=== PATIENT | male | born 1940 | race Caucasian/White ===

== ENCOUNTER → 2023-02-12 | Outpatient (CLI) | payer MEDICARE, OTHER, SELFPAY ==
[2023-02-12 11:51] LABS: PSA,Total- Diagnostic 7.74 ng/mL (0.0-4.0)
[2023-02-13 12:09] LABS: PSA, Free 1.45 ng/mL; PSA, Free % 21.3 % (.)
== END | disposition home or self-care (01) ==
LOC: LAB 10:41
PROVIDERS: Referring Provider Nurse Practitioner; Visit Provider Nurse Practitioner
DX: R97.20 Elevated prostate specific antigen [PSA] (principal)
CPT/HCPCS: 36415; 84153; 84154

== ENCOUNTER → 2023-08-03 | Outpatient (CLI) | payer MEDICARE, OTHER, SELFPAY ==
[2023-08-05 12:10] LABS: PSA, Free % 17.5 % (.)
== END | disposition home or self-care (01) ==
LOC: LAB 14:05
PROVIDERS: Referring Provider Nurse Practitioner; Visit Provider Nurse Practitioner
DX: R97.20 Elevated prostate specific antigen [PSA] (principal)
CPT/HCPCS: 36415; 84153; 84154

== ENCOUNTER → 2024-02-09 | Outpatient (CLI) | payer MEDICARE, OTHER, SELFPAY ==
[2024-02-10 13:08] LABS: PSA, Free 1.02 ng/mL; PSA, Free % 25.3 % (.)
== END | disposition home or self-care (01) ==
LOC: LAB 11:23
PROVIDERS: Referring Provider Nurse Practitioner; Visit Provider Nurse Practitioner
DX: R97.20 Elevated prostate specific antigen [PSA] (principal)
CPT/HCPCS: 36415; 84153; 84154

== ENCOUNTER 2024-04-24 02:12 | Emergency (ER) | payer MEDICARE, OTHER, SELFPAY ==
[2024-04-24] VITALS (7 sets, daily range): BP systolic 121–157; BP diastolic 50–89; PULSE 71–82; RESP 15–71; TEMP 36.7–36.9; O2SAT 70–95; BMI 26.8
--- NOTE | 2024-04-24 02:27 | EKG12_ITS ---
Test Reason : SOB Blood Pressure : */* mmHG Vent. Rate : 77 BPM Atrial Rate : 77 BPM P-R Int : 126 ms QRS Dur : 144 ms QT Int : 412 ms P-R-T Axes : 19 -35 8 degrees QTcB Int : 466 ms Atrial-sensed ventricular-paced rhythm Abnormal ECG Confirmed by Loki Reddy ([id number]), acquisitions editor NOLA ALICEA ([id number]) on 04/26/2024 10:27:23 AM Referred By: Confirmed By: Loki Reddy
[2024-04-24] MEDS: Albuterol 2.5 MG/3 ML VIAL.NEB. INHALATION (02:41)
[2024-04-24 02:46] LABS: Absolute Lymphocyte Count 0.91 X10^3/uL (0.83-4.51); Absolute Neutrophil Count 7.2 X10^3/uL (2.0-7.7); Basophil# 0.03 X10^3/uL; Basophil% 0.3 % (0-1); Eosinophil# 0.12 X10^3/uL; Eosinophils% 1.3 % (0-5); Hemoglobin 13.3 g/dL (13.0-16.5); Lymphocyte # 0.91 X10^3/ul (0.83-4.51); Lymphocyte % 10.2 % (19-41); Mean Corp Hgb Conc 32.4 g/dL (32-36); Mean Corpuscular Hgb 30.7 pg (27.0-32.0); Mean Corpuscular Volume 94.7 fL (80-94); Mean Platelet Vol. 10.1 fl (6.2-12.0); Monocyte# 0.62 X10^3/uL; Monocyte% 6.9 % (0-10); NRBC Flagged by Analyzer 0 % (0-5); Neutrophil # 7.22 X10^3/uL (2.7-7.7); Platelet Count 124 K/mm3 (150-450); RBC Distribution Width SD 48.5 fl (35.1-43.9); Red Blood Count 4.33 M/mm3 (4.6-6.2); White Blood Count 8.9 K/mm3 (4.4-11.0)
--- NOTE | 2024-04-24 02:54 | RAD_ITS ---
EXAM: XR CHEST, 2 VIEWS CLINICAL INDICATION: Shortness of breath TECHNIQUE: Frontal and lateral views of the chest. COMPARISON: No relevant prior studies available. FINDINGS: LUNGS AND PLEURAL SPACES: Unremarkable. No consolidation or edema. No pneumothorax. No effusion. HEART: Unremarkable. Cardiac silhouette not enlarged. MEDIASTINUM: Central airways and mediastinal contour are unremarkable. BONES/JOINTS: Reverse right shoulder arthroplasty. No acute fracture. SOFT TISSUES: Unremarkable. VASCULATURE: Atherosclerotic calcification of the nonenlarged thoracic aortic arch. TUBES, LINES AND DEVICES: AICD/pacer with intact wires/leads. UPPER ABDOMEN: Prior cholecystectomy. RAD/Chest PA and Lateral IMPRESSION: No acute disease. Electronically Signed: Keenan Lindsey MD at 3:58 EST ,
--- NOTE | 2024-04-24 03:21 | EX.ED.DYSGE1 ---
HPI History of Present Illness Chief Complaint: Shortness of Breath Detail of Chief Complaint: Upper respiratory symptoms that started past 24 to 36 hours Informant: patient and spouse/S.O. Onset/Context/Timing Onset: Yesterday Context: Sudden Onset Timing: Continuous Quality: Productive cough, shortness of breath Location: Respiratory Current Severity: Moderate Maximum Severity: Moderate Worsened by: Nothing Relieved by: Nothing Associated Symptoms Associated Symptoms: No fever or chills. No ill contacts. Narrative Narrative: Patient presents with upper respiratory symptoms. He is complaining of shortness of breath and cough. Cough is productive of white sputum. He is a non-smoker. He denies any ill contacts. He denies fever or chills. He denies headache. He does report nasal congestion. He denies sore throat. He denies chest discomfort. He denies GI symptoms. He denies history of asthma as a child. Prior similar symptoms: No Recent Illness/Hospitalization: No PFSH PFSH Medical History Colon cancer Home Medications ?Medication ?Instructions ?Recorded ?Last Taken ?Type aspirin 81 mg chewable tablet 1 tab PO DAILY 04/24/24 Unknown History atorvastatin 80 mg tablet 80 mg PO QHS 04/24/24 Unknown History isosorbide mononitrate 60 mg 60 mg PO DAILY 04/24/24 Unknown History tablet,extended release 24 hr losartan 50 mg tablet 50 mg PO DAILY 04/24/24 Unknown History metoprolol succinate 50 mg 50 mg PO DAILY 04/24/24 Unknown History tablet,extended release 24 hr spironolactone 25 mg tablet 12.5 mg PO DAILY 04/24/24 Unknown History ticagrelor 90 mg tablet (Brilinta) 90 mg PO BID 04/24/24 Unknown History Allergy/AdvReac Type Severity Reaction Status Date / Time No Known Allergies Allergy Verified 04/24/24 02:13 Surgical History Status post left knee replacement H/O shoulder replacement History of coronary artery stent placement Social History Smoking Status: Never smoker ROS ROS ED Constitutional Constitutional ED: Denies chills, fever(s) or subjective Eyes Eyes: Denies blurry vision or change in vision ENT ENT ED: Reports rhinorrhea; Denies ear pain or sore throat Cardiovascular Cardiovascular: Denies chest pain, orthopnea, palpitations or paroxysmal nocturnal dyspnea Respiratory/Chest Respiratory/Chest: Reports cough, dyspnea and sputum; Denies dyspnea on exertion, orthopnea or paroxysmal nocturnal dyspnea Gastrointestinal Gastrointestinal: Denies abdominal pain, nausea or vomiting Genitourinary Genitourinary ED: Denies dysuria, hematuria or urinary frequency Musculoskeletal Musculoskeletal: Denies arthralgias or myalgias Integumentary Denies rash Neurologic Neurologic: Denies headache(s) or weakness Psychiatric Psychiatric: Denies anxiety or depression Endocrine Endocrinology: Denies cold intolerance or heat intolerance Hematologic/Lymphatic Hematologic/Lymphatic: Reports systems reviewed and no addt'l complaints, except as documented EXAM Physical Exam Const Vital Signs: 04/24/24 02:13 04/24/24 02:17 04/24/24 02:38 Temperature 98.5 F 98.5 F Temperature Source Oral Oral Pulse Rate 73 78 78 Respiratory Rate 71 H 21 H 21 H Respiratory Effort Respiratory Depth Respiratory Pattern Blood Pressure 157/89 H 157/80 H Blood Pressure Mean 111 105 Pulse Ox 94 94 Oxygen Delivery Method Room Air Room Air 04/24/24 02:46 04/24/24 03:17 04/24/24 04:00 Temperature 98.2 F 98.2 F Temperature Source Oral Oral Pulse Rate 72 82 Respiratory Rate 15 18 Respiratory Effort Normal Respiratory Depth Normal Respiratory Pattern Normal Blood Pressure 121/72 H 123/50 H Blood Pressure Mean 88 74 Pulse Ox 95 95 Oxygen Delivery Method Room Air Room Air Room Air First respiratory rate was documented be 71. This was incorrect. Positive well nourished and well developed Constitutional Narrative: Patient reports he is having trouble with his breathing. He is tachypneic; he is not hypoxic. General Appearance ED: well developed; Negative for cyanotic, diaphoretic or pallor HEENT Reports moist mucous membranes HEENT Narrative: Head is atraumatic normocephalic. Ears normal. Nares patent with discharge. Eyes PERRL and EOMs intact bilaterally General Eye ED: Negative for pale conjunctiva or scleral icterus Neck no lymphadenopathy and supple Chest Wall inspection of chest normal and palpation of chest normal Resp normal respiratory effort and No clear to auscultation bilaterally Resp Narrative: Patient has expiratory wheezing. He is coughing significantly. He is producing white-colored sputum. Cardio regular rate, regular rhythm, S1 normal heart sound, S2 normal heart sound and no murmurs GI normal to inspection, nondistended, normoactive bowel sounds, non-tender, non-distended and no masses; Negative for hepatosplenomegaly Back/Spine no CVA tenderness Extremity normal to inspection General Extremety ED: Negative for edema or tenderness General Extremity: Negative for edema Neuro oriented x3 and CN's II-XII intact bilaterally Sensorium / Orientation: alert Psych mental status grossly normal Skin no rashes or lesions noted, no wounds and skin turgor normal General Skin Exam: Negative for jaundice or pallor MDM MDM MDM Narrative Medical decision making narrative: Patient was treated the albuterol for his wheezing. Chest x-ray was obtained since he had pneumonia in the past he is concerned he has pneumonia. I suspect this is a viral upper respiratory infection. Because of his age EKG was obtained per protocol. Appropriate blood work was obtained which included CBC to assess white count differential and rule out anemia. BMP to assess for any endorgan dysfunction. Lab Data Attestation: I reviewed the patient's lab results. Lab results narrative: CBC is unremarkable. Electrolyte panel is unremarkable. Chloride slightly elevated 115. Creatinine is 1.20 with estimated GFR 62. Glucose slight elevated 116 with normal CO2 anion gap. Labs: Laboratory Results - last 24 hr 04/24/24 02:36 WBC 8.9 RBC 4.33 L Hgb 13.3 Hct 41.0 MCV 94.7 H MCH 30.7 MCHC 32.4 RDW Std Deviation 48.5 H RDW Coeff of Ana 14.0 Plt Count 124 L MPV 10.1 Immature Gran % (Auto) 0.300 Neut % (Auto) 81.0 H Lymph % (Auto) 10.2 L [place] % (Auto) 6.9 Eos % (Auto) 1.3 Baso % (Auto) 0.3 Absolute Neuts (auto) 7.2 Absolute Lymphs (auto) 0.91 Nucleated RBC % 0 Sodium 141 Potassium 4.3 Chloride 115 H Carbon Dioxide 19.0 L Anion Gap 7 BUN 21 H Creatinine 1.20 Estim Creat Clear Calc 45.92 Est GFR (MDRD) Af Amer 75 Est GFR (MDRD) Non-Af 62 BUN/Creatinine Ratio 17.5 Glucose 116 H Calcium 8.5 Radiography Chest X-Ray - ED: 2 View, Read by ED Physician (Independent reviewed interpreted by me at 0322. There is no acute findings. There is a pacemaker noted. Wires appear to be in proper position.), Unchanged, Heart, Lungs, Mediastinum, Bony Structures and No Acute Disease Diagnostic Testing: Clinical Impression(s) from Imaging Studies Chest X-Ray 04/24/24 02:54 IMPRESSION: No acute disease. Electronically Signed: Keenan Lindsey MD at 3:58 EST , EKG Initial EKG: Attestation: I personally reviewed and interpreted this EKG as follows: Interpretation: Paced (Atrial sensed ventricular paced rhythm with a rate of 77. MO interval is 126 ms. QRS duration 144 ms. QT duration 412 ms.) Treatment and Re-Evaluation :: Patient was reassessed. He is wheeze free. He does report improvement with regards to the coughing and shortness of breath after the albuterol treatment. Since he is never used inhaler we will have respiratory teach him how to use inhaler and dispensed the inhaler. He was informed that this is a viral illness. Antibiotics are not indicated. He was informed of his laboratory results and x-ray results. Discharge Plan Triage Chief Complaint: Shortness of Breath ED Provider: Victorino Hauser Dx/Rx/DC Orders Clinical Impression: Acute bronchitis, Acute bronchospasm, Elevated blood pressure reading with diagnosis of hypertension Prescriptions: No Action losartan 50 mg tablet 50 mg PO DAILY atorvastatin 80 mg tablet 80 mg PO QHS metoprolol succinate 50 mg tablet extended release 24 hr 50 mg PO DAILY spironolactone 25 mg tablet 12.5 mg PO DAILY isosorbide mononitrate 60 mg tablet extended release 24 hr 60 mg PO DAILY aspirin 81 mg tablet,chewable 1 tab PO DAILY Brilinta 90 mg tablet 90 mg PO BID Primary Care Provider: LAW TREVINO Referrals: NOT,DEFINED [Non-Staff] - Doctor,Your [Non-Staff] - 1 Week if not improving Activity Restrictions/Additional Instructions: 1. 2 puffs an inhaler every 2-4 hours while awake for the next 3 to 5 days and every 4-6 hours as needed 2. You may be ill for another 7 to 10 days Print Language: Luxembour[place] Disposition Disposition: Home, Self Care
[2024-04-24 03:28] LABS: BUN 21 mg/dL (7-18); BUN/Creat Ratio 17.5 RATIO (10-20); Calcium,Total 8.5 mg/dL (8.5-10.1); Chloride 115 mmol/L (98-107); Estimated Creatinine Clearance 45.92 ml/min; Glucose 116 mg/dL (74-106); Potassium 4.3 mmol/L (3.5-5.1); Sodium Level 141 mmol/L (136-145)
[2024-04-24] MEDS: Ondansetron ODT 4 MG Tablet PO (04:54)
[2024-04-24] MEDS: Albuterol Sulfate 8 gm Inhaler (60 puffs) 4 PUFF INHALATION (04:57)
[2024-04-24 06:09] LABS: Anion Gap 8 (5-15); EST Glomerular Filtration Rate 62 mL/min (>60); Est Glom Filt Rate - Afr Amer 74 mL/min (>60)
== END 2024-04-24 05:32 | disposition home or self-care (01) ==
PROVIDERS: Emergency Provider Emergency Medicine; Visit Provider Emergency Medicine
DX: J20.9 Acute bronchitis, unspecified (principal); R03.0 Elevated blood-pressure reading, without diagnosis of hypertension; Z95.5 Presence of coronary angioplasty implant and graft; Z85.038 Personal history of other malignant neoplasm of large intestine; Z79.82 Long term (current) use of aspirin; Z96.652 Presence of left artificial knee joint; Z96.619 Presence of unspecified artificial shoulder joint; Z79.899 Other long term (current) drug therapy
CPT/HCPCS: 71046; 80048; 85025; 87631; 93005; 94640; 99284; A4216

== ENCOUNTER → 2025-02-27 | Outpatient (CLI) | payer MEDICARE, OTHER, SELFPAY ==
--- OUTSIDE RECORDS SUMMARY | 2025-02-16 09:47 | XMS RPT_ITS ---
Author Name Auto Generated Organization OHIP Support Name Relationship Address Phone HOLA GERBER Next of Kin [address] [place] [address] + AMBER GERBER Next of Kin Unknown Unavailabl e DIEGO HOLA Next of Kin [address] [place] [address] + DIEGO HOLA Next of Kin [address] [address] [place] [address] + DIEGO HOLA Next of Kin [address] [place] [address] + DIEGO HOLA Next of Kin [address] [address] [place] [address] + DIEGO HOLA Next of Kin [address] [address] [place] [address] + RE Next of Kin Unknown Unavailable DIEGO HOLA Next of Kin [address] [place] [address] + DIEGO HOLA Next of Kin [address] [address] [place] [address] + RE Next of Kin Unknown Unavailable DIEGO HOLA Next of Kin [address] [place] [address] + AMBER GERBER Next of Kin Unknown Unavailabl e DIEGO, HOLA Next of Kin [address] [place] [address] + DIEGO, AMBER Next of Kin Unknown Unavailabl e DIEGO, HOLA Next of Kin [address] [place] [address] + DIEGO, AMBER Next of Kin Unknown Unavailabl e DIEGO, HOLA Next of Kin [address] [place] [address] + DIEGO, AMBER Next of Kin Unknown Unavailabl e DIEGO, HOLA Next of Kin [address] [place] [address] + DIEGO, AMBER Next of Kin Unknown Unavailabl e DIEGO, HOLA Next of Kin Unknown + DIEGO, HOLA Next of Kin Unknown + DIEGO, HOLA Next of Kin Unknown + DIEGO, HOLA Next of Kin Unknown + DIEGO, HOLA Next of Kin Unknown + DIEGO, HOLA Next of Kin Unknown + DIEGO, HOLA Next of Kin Unknown + DIEGO, HOLA Next of Kin Unknown + DIEGO, HOLA Next of Kin Unknown + DIEGO, HOLA Next of Kin [address] [place] [address] + DIEGO, AMBER Next of Kin Unknown Unavailabl e Care Team Providers Care Grinding Wheel Operator Name Role Phone Law Schmitt Referring Unavailable Law Schmitt Primary Care Unavailable Chen Perea Attending Unavailable Uriel, Law Referring Unavailable Uriel, Law Primary Care Unavailable Uriel, Law Attending Unavailable Uriel, Law Attending Unavailable Uriel, Law Primary Care Unavailable Uriel, Law Attending Unavailable Uriel, Law Referring Unavailable Uriel, Law Primary Care Unavailable Uriel, Law Attending Unavailable Uriel, Law Primary Care Unavailable Uriel, Law Referring Unavailable Uriel, Law Primary Care Unavailable Uriel, Law Attending Unavailable Uriel, Law Primary Care Unavailable Uriel, Law Attending Unavailable Uriel, Law Attending Unavailable Uriel, Law Primary Care Unavailable Martha Henderson Attending Unavailable Uriel, Law Referring Unavailable Uriel, Law Primary Care Unavailable Leroy Castillo Jr Attending Unavailable Uriel, Law Primary Care Unavailable Chen Perea Attending Unavailable Uriel, Law Primary Care Unavailable CLASS, [facility] Attending Myrna vailable DOCTOR, [facility] Referring Unav ailable URIEL, LAW Primary Care Unavailable CLASS, [facility] Attending Myrna vailable DOCTOR, [facility] Referring Unav ailable URIEL, LAW Primary Care Unavailable CLASS, [facility] Attending Myrna vailable DOCTOR, [facility] Referring Unav ailable URIEL, LAW Primary Care Unavailable CLASS, [facility] Attending Myrna vailable DOCTOR, [facility] Referring Unav ailable URIEL, LAW Primary Care Unavailable CLASS, [facility] Attending Myrna vailable DOCTOR, [facility] Referring Unav ailable URIEL, LAW Primary Care Unavailable CLASS, [facility] Attending Myrna vailable DOCTOR, [facility] Referring Unav ailable URIEL, LAW Primary Care Unavailable CLASS, [facility] Attending Myrna vailable DOCTOR, [facility] Referring Unav ailable URIEL, LAW Primary Care Unavailable CLASS, [facility] Attending Myrna vailable DOCTOR, [facility] Referring Unav ailable URIEL, LAW Primary Care Unavailable CLASS, [facility] Attending Myrna vailable DOCTOR, [facility] Referring Unav ailable URIEL, LAW Primary Care Unavailable EDGMON, JAMISON Attending Unavailable URIEL, [facility] Primary Care UnavailJANET Tovar Attending Unavailable JANET CHOWDHURY Admitting Unavailable URIEL, LAW SANDI Primary Care Unavailabl e GURVINDER SOTO Attending Unavailable URIEL, LAW Referring Unavailable URIEL, LAW Primary Care Unavailable DEBI SPICER Attending Unavailable DANNIELLE, DEBI Referring Unavailable URIEL, LAW Primary Care Unavailable CINDY TAMAYO Attending Unavailable URIEL, LAW Referring Unavailable URIEL, LAW Primary Care Unavailable SANDY TOLEDO Attending Unavailable URIEL, LAW Primary Care Unavailable RASHAUN BLACKWOOD Attending Unavailable URIEL, LAW Primary Care Unavailable SANDY TOLEDO Attending Unavailable URIEL, LAW Referring Unavailable URIEL, LAW Primary Care Unavailable MANUEL PEREZ Attending Unavailable URIEL, LAW Referring Unavailable URIEL, LAW Primary Care Unavailable URIEL, [facility] Primary Care UnavailJANET Tovar Attending Unavailable JANA PANDA Attending Unavailabl e URIEL, [facility] Primary Care Unavailabl e Chen Jackson Attending Unavail able ERICKSON GRACE Primary Care Unavaila ble Chen Jackson Attending Unavail able ERICKSON GRACE Primary Care Unavaila ble PROBLEMS DATE TYPE CONDITION / CODE ATTENDING STATUS [facility] 01/26/2019 Active Lentigines / L81.4(ICD-10) JANA PANDA [facility] 01/26/2019 Active Seborrheic kerat oses / L82.1(ICD-10) JANA PANDA [facility] 01/26/2019 Active Folliculitis / L73.9(ICD-10) JANA PANDA [facility] 01/26/2019 Active Vitiligo / L80(ICD-10) JANA PANDA [facility] 02/16/2025 Active Atopic dermatiti s, unspecified type / L20.9(ICD-10) JANA PANDA [facility] 01/19/2025 Unknown Follow-up / [id number]() CINDY TAMAYO [facility] 12/28/2024 Admitting diagnosis Family history of malignant neoplasm of digestive organs / Z80.0(ICD-10) SARAP, JANET [facility] 12/28/2024 Admitting diagnosis Colon consult / UNK(Unknown) JANET CHOWDHURY [facility] 12/25/2024 Admitting diagnosis Other muscle spasm / M62.838(ICD-10) [facility] Admitting diagnosis Other injury of unspecified body region, initial encounter / T14.8XXA(ICD-10) EDLYRIC [facility] 12/25/2024 Admitting diagnosis Low back pain, unspecified / M54.50(ICD-10) EDLYRIC [facility] 12/25/2024 Admitting diagnosis Strain of unspecified muscle, fascia and tendon at shoulder and upper arm level, left arm, initial encounter / S46.912A(ICD-10) [facility] 11/05/2023 Unknown Ischemic cardiomyopathy / I25.5(ICD-10) BRITTANY GURVINDER [facility] 06/20/2024 Unknown Sick sinus syndr ome / I49.5(ICD-10) BRITTANY [facility] 06/20/2024 Unknown Presence of card iac pacemaker / Z95.0(ICD-10) BRITTANY GURVINDER [facility] 06/20/2024 Unknown Other supraventr icular tachycardia / I47.19(ICD-10) GURVINDER SOTO [facility] 06/14/2024 Unknown Thoracic aortic ectasia / I77.810(ICD-10) DANNIELLE [facility] 06/14/2024 Unknown Other heart fail ure / I50.89(ICD-10) DANNIELLE [facility] 04/06/[address] elevation (STEMI) myocardial infarction of unspecified site ([facility]) / I21.3(ICD-10) CLASS, [facility] Active [facility] PROCEDURES No Procedure Records Found RESULTS PROGRESS Observed: 02/16/2025 2:24 PM Status: COMPLETED Source: [facility] HNO ID: [id number] Author: JANA PANDA MD Service: ? Author Type: Physician Type: Progress Notes Filed: 02/16/2025 14:29 Note Text: HISTORY: Lissa Gerber is an 84 year old White male without a personal history of skin cancer but with vitiligo who presents today for a full skin exam. Concerned with spots on back that itch and with spots on the forearms that get red, puffy and very itchy at times. He is using desonide cream for treatment without much improvement. He denies any other growing or changing lesions, lesions which have been bleeding or itching, or any other lesions of concern today. Patient is engaging in sun protective measures. Patient is performing self-skin examinations. ALLERGIES No Known Allergies Current Outpatient Medications Medication Sig losartan (COZAAR) 50 mg tablet Take 50 mg by mouth once daily. metoprolol succinate ER (TOPROL XL) 50 mg 24 hr tablet Take 1 tablet by mouth once daily. atorvastatin (LIPITOR) 80 mg tablet Take 80 mg by mouth daily at bedtime. aspirin, enteric coated (ASPIRIN, ENTERIC COATED) 81 mg EC tablet Take 1 tablet by mouth every afternoon. cholecalciferol (VITAMIN D3) 50 mcg (2,000 unit) tablet Take 2,000 Units by mouth once daily. FA/mv,Ca,iron,min/lycopene/lut (MULTIVITAL ORAL) Take by mouth. triamcinolone acetonide (KENALOG) 0.1 % cream Apply 1 application to affected area two times a day. clindamycin (CLEOCIN T) 1 % external solution Apply to affected area two times a day. To scalp and neck prn No current facility-administered medications for this visit. PAST MEDICAL HISTORY Diagnosis Date Colon cancer (HCC) Heart attack (HCC) 10/01/2023 Hypertension Kidney stones Pacemaker 03/2024 PAST PERSONAL SKIN PROBLEMS:vitiligo FAMILY HISTORY Family history unknown: Yes Social History Tobacco Use Smoking status: Never Smokeless tobacco: Never Vaping Use Vaping status: Never Used Substance Use Topics Alcohol use: No Drug use: Never REVIEW OF SYSTEMS: Patient feels well and denies any recent fevers, chills, or nightsweats. EXAM: There were no vitals taken for this visit. General appearance: Well appearing, alert, in no acute distress, well-hydrated, well nourished. Skin: Total body skin examination performed. All areas examined including: scalp, face, conjunctiva/eyelids, lips/mouth, neck, chest, abdomen, back, left upper extremity, right upper extremity, digits/nails, left lower extremity, right lower extremity. -nixon, waxy, stuck on papules of trunk and extremities -many nixon macules with normal pigmentation of face, trunk and extremities -depigmented patches of trunk and extremities -pink patches of b/l forearms and pink pustules of scalp and posterior neck ASSESSMENT/PLAN: 1. Seborrheic keratoses - ICD9: 702.19, ICD10: L82.1 (primary diagnosis) -trunk and extremities -benign, patient reassured 2. Folliculitis - ICD9: 704.8, ICD10: L73.9 -flaring at this time on the scalp and posterior neck -start: - CLINDAMYCIN PHOSPHATE 1 % TOPICAL SOLUTION -recommend wiping off sweat after activities and continuing to wash hair nightly 3. Lentigines - ICD9: 709.09, ICD10: L81.4 -face, trunk and extremities -benign, patient reassured -recommend use of noncomedogenic daily facial moisturizer with SPF 30 4. Vitiligo - ICD9: 709.01, ICD10: L80 -Rx sent for refills of TAC 0.1% cream topically BID prn lesions on the legs -recommend photoprotection with SPF 30 or higher sunscreen, wide brimmed hat, and sun protective UPF clothing when outdoors. 5. Atopic dermatitis, unspecified type - ICD9: 691.8, ICD10: L20.9 - Begin treatment with topical steriods TAC 0.1% cream - Anti itch therapy of zyrtec 10mg recommended prn - Dry skin care instructions reviewed - Use mild soap like Dove, Aveeno or Cetaphil - limit shower/bath to less than 15 minutes with warm, not hot, water - BID use of recommended emollients such as Cetaphil, Eucerin Plus, Aveeno, Aquaphor - Follow up if symptoms persist or worsen. Jana Panda MD Importance of sun-protective measures and self-skin exams reviewed with patient. Recommend photoprotection with SPF 30 or higher sunscreen, wide brimmed hat, and sun protective UPF clothing when outdoors. Return in about 1 year (around 02/16/2026). Some elements copied from my notes 02/16/24, including the physical exam, history, and assessment and plan completed in entirety today, have been updated where appropriate. All reflect current medical decision making from today, 02/16/25. CNOV Observed: 02/16/2025 10:30 AM Status: COMPLETED Source: [facility] Office Visit ([facility]) LISSA GERBER ([id number]) 1940 M Date Time Provider Department 02/16/25 10:30 AM JANA PANDA [facility] During your visit today, we recorded the following information about you: Jana Panda MD 02/16/2025 10:43 AM Addendum -recommend use of OTC cetirizine 10 mg once a day to help with red bumps/itching. Clindamycin solution for scalp/neck and the Triamcinolone cream for the arms. Jana Panda MD 02/16/2025 2:29 PM Signed HISTORY: Lissa Gerber is an 84 year old White male without a personal history of skin cancer but with vitiligo who presents today for a full skin exam. Concerned with spots on back that itch and with spots on the forearms that get red, puffy and very itchy at times. He is using desonide cream for treatment without much improvement. He denies any other growing or changing lesions, lesions which have been bleeding or itching, or any other lesions of concern today. Patient is engaging in sun protective measures. Patient is performing self-skin examinations. ALLERGIES No Known Allergies Current Outpatient Medications Medication Sig losartan (COZAAR) 50 mg tablet Take 50 mg by mouth once daily. metoprolol succinate ER (TOPROL XL) 50 mg 24 hr tablet Take 1 tablet by mouth once daily. atorvastatin (LIPITOR) 80 mg tablet Take 80 mg by mouth daily at bedtime. aspirin, enteric coated (ASPIRIN, ENTERIC COATED) 81 mg EC tablet Take 1 tablet by mouth every afternoon. cholecalciferol (VITAMIN D3) 50 mcg (2,000 unit) tablet Take 2,000 Units by mouth once daily. FA/mv,Ca,iron,min/lycopene/lut (MULTIVITAL ORAL) Take by mouth. triamcinolone acetonide (KENALOG) 0.1 % cream Apply 1 application to affected area two times a day. clindamycin (CLEOCIN T) 1 % external solution Apply to affected area two times a day. To scalp and neck prn No current facility-administered medications for this visit. PAST MEDICAL HISTORY Diagnosis Date Colon cancer (HCC) Heart attack (HCC) 10/01/2023 Hypertension Kidney stones Pacemaker 03/2024 PAST PERSONAL SKIN PROBLEMS:vitiligo FAMILY HISTORY Family history unknown: Yes Social History Tobacco Use Smoking status: Never Smokeless tobacco: Never Vaping Use Vaping status: Never Used Substance Use Topics Alcohol use: No Drug use: Never REVIEW OF SYSTEMS: Patient feels well and denies any recent fevers, chills, or nightsweats. EXAM: There were no vitals taken for this visit. General appearance: Well appearing, alert, in no acute distress, well-hydrated, well nourished. Skin: Total body skin examination performed. All areas examined including: scalp, face, conjunctiva/eyelids, lips/mouth, neck, chest, abdomen, back, left upper extremity, right upper extremity, digits/nails, left lower extremity, right lower extremity. -nixon, waxy, stuck on papules of trunk and extremities -many nixon macules with normal pigmentation of face, trunk and extremities -depigmented patches of trunk and extremities -pink patches of b/l forearms and pink pustules of scalp and posterior neck ASSESSMENT/PLAN: 1. Seborrheic keratoses - ICD9: 702.19, ICD10: L82.1 (primary diagnosis) -trunk and extremities -benign, patient reassured 2. Folliculitis - ICD9: 704.8, ICD10: L73.9 -flaring at this time on the scalp and posterior neck -start: - CLINDAMYCIN PHOSPHATE 1 % TOPICAL SOLUTION -recommend wiping off sweat after activities and continuing to wash hair nightly 3. Lentigines - ICD9: 709.09, ICD10: L81.4 -face, trunk and extremities -benign, patient reassured -recommend use of noncomedogenic daily facial moisturizer with SPF 30 4. Vitiligo - ICD9: 709.01, ICD10: L80 -Rx sent for refills of TAC 0.1% cream topically BID prn lesions on the legs -recommend photoprotection with SPF 30 or higher sunscreen, wide brimmed hat, and sun protective UPF clothing when outdoors. 5. Atopic dermatitis, unspecified type - ICD9: 691.8, ICD10: L20.9 - Begin treatment with topical steriods TAC 0.1% cream - Anti itch therapy of zyrtec 10mg recommended prn - Dry skin care instructions reviewed - Use mild soap like Dove, Aveeno or Cetaphil - limit shower/bath to less than 15 minutes with warm, not hot, water - BID use of recommended emollients such as Cetaphil, Eucerin Plus, Aveeno, Aquaphor - Follow up if symptoms persist or worsen. Jana Panda MD Importance of sun-protective measures and self-skin exams reviewed with patient. Recommend photoprotection with SPF 30 or higher sunscreen, wide brimmed hat, and sun protective UPF clothing when outdoors. Return in about 1 year (around 02/16/2026). Some elements copied from my notes 02/16/24, including the physical exam, history, and assessment and plan completed in entirety today, have been updated where appropriate. All reflect current medical decision making from today, 02/16/25. Allergies As of Date: 02/16/2025 (No Known Allergies) Date Reviewed: 02/16/2025 Reviewed by: Jana Panda MD - Fully Assessed Reason for Visit: Full Body Skin Check [1445] Cmt: Itchy red spot on right forearm Primary Visit Diagnosis:Folliculitis [L73.9] Other Visit Diagnoses:Seborrheic keratoses [L82.1] Lentigines [L81.4] Vitiligo [L80] Atopic dermatitis, unspecified type [L20.9] Order(s):triamcinolone acetonide (KENALOG) 0.1 % creamApply 1 application to affected area two times a day.Disp: 80 gRfl: 5 clindamycin (CLEOCIN T) 1 % external solutionApply to affected area two times a day. To scalp and neck prnDisp: 60 mLRfl: 5 Prescriptions as of 02/16/2025 - losartan (COZAAR) 50 mg tablet Take 50 mg by mouth once daily. - triamcinolone acetonide (KENALOG) 0.1 % cream Apply 1 application to affected area two times a day. - clindamycin (CLEOCIN T) 1 % external solution Apply to affected area two times a day. To scalp and neck prn - metoprolol succinate ER (TOPROL XL) 50 mg 24 hr tablet Take 1 tablet by mouth once daily. - atorvastatin (LIPITOR) 80 mg tablet Take 80 mg by mouth daily at bedtime. - aspirin, enteric coated (ASPIRIN, ENTERIC COATED) 81 mg EC tablet Take 1 tablet by mouth every afternoon. - cholecalciferol (VITAMIN D3) 50 mcg (2,000 unit) tablet Take 2,000 Units by mouth once daily. - FA/mv,Ca,iron,min/lycopene/lut (MULTIVITAL ORAL) Take by mouth. 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 Clindamycin solution for scalp/neck and the Triamcinolone cream for the arms. Prescriptions ordered this encounter Disp Refills Start End TRIAMCINOLONE ACETONIDE 0.1 % TOPICA* 80 g 5 02/16/2025 Route: TOP Sig: Apply 1 application to affected area two times a day. CLINDAMYCIN PHOSPHATE 1 % TOPICAL SO* 60 mL 5 02/16/2025 Route: TOP Sig: Apply to affected area two times a day. To scalp and neck prn Medications Discontinued During This Encounter Prescriptions - BRILINTA 90 mg tablet (Discontinued) Take 90 mg by mouth two times a day. - spironolactone (ALDACTONE) 25 mg tablet (Discontinued) Take 12.5 mg by mouth once daily. - isosorbide mononitrate ER (IMDUR) 60 mg 24 hr tablet (Discontinued) Take 60 mg by mouth once daily. - hydrALAZINE (APRESOLINE) 50 mg tablet (Discontinued) Take 1 tablet by mouth q 8 HR. - clindamycin (CLEOCIN T) 1 % external solution (Discontinued) Apply to affected area two times a day. To scalp and neck prn - triamcinolone acetonide (KENALOG) 0.1 % cream (Discontinued) Apply 1 application to affected area two times a day. Disposition: Return in about 1 year (around 02/16/2026). Follow-up and Disposition History for Encounter Date Provider Department Center 02/16/2025 [id number] Status:Closed by JANA PANDA on 02/16/25 PROGRESS Observed: 12/28/2024 4:43 PM Status: COMPLETED Source: [facility] [id number] [facility] [id number] History and Physical Patient ID: Lissa Gerber 1940 Chief Complaint Colon consult HPI: Lissa is a 84 y.o. male who is a patient of Dr. Brandy Schmitt. He has multiple family members with colon cancer. He has had polyps in the past. He has no current symptoms.. Past Medical History: Diagnosis Date Cancer (HCC) COLON History of heart artery stent X1 Kidney stones Myocardial infarction (HCC) Pacemaker Past Surgical History: Procedure Laterality Date CATARACT EXTRACTION, BILATERAL CHOLECYSTECTOMY COLON RESECTION HERNIA REPAIR ROTATOR CUFF REPAIR TOTAL KNEE ARTHROPLASTY Left TOTAL SHOULDER ARTHROPLASTY Right History reviewed. No pertinent family history. Social History[1] Allergies[2] Current Medications[3] ROS:10 systems reviewed. All deemed to be negative except HPI. PHYSICAL EXAM: VITALS: Blood pressure 134/85, pulse 72, height 5' 8", weight 82 kg (180 lb 12.8 oz), SpO2 97%. GENERAL: Alert and oriented x 3, no acute distress. HEENT: Head atraumatic, normocephalic, sclerae are anicteric, moist mucous membrane, trachea midline. HEART: Regular rate rhythm. LUNG: Normal respiratory effort, clear to auscultation bilaterally. ABDOMEN: Soft, nontender, nondistended, no guarding rebound or rigidity, no hepatosplenomegaly or hernias noted. NEURO: Cranial nerves II to XII grossly intact, no gross motor or sensory neurodeficits noted. EXTREMITIES: Moves all extremities, no edema. SKIN: Warm and dry. ASSESSMENT/PLAN: Diagnoses and all orders for this visit: Family history of colon cancer I discussed the risk benefits complications and alternatives of screening colonoscopy. He understands and gives consent. Will plan for January 17 at 1030. Janet Chowdhury MD [1] Social History Tobacco Use Smoking status: Never Smokeless tobacco: Never Substance Use Topics Alcohol use: Never Drug use: Never [2] Allergies Allergen Reactions Adhesive Tape-Silicones Other (See Comments) Latex Other (See Comments) Adhesive Other (See Comments) [3] Current Outpatient Medications: atorvastatin (LIPITOR) 80 MG tablet, Take 1 (one) tablet (80 mg total) by mouth nightly ., Disp: , Rfl: diazePAM (VALIUM) 5 MG tablet, Take 1 (one) tablet (5 mg total) by mouth 3 (three) times a day as needed for muscle spasms ., Disp: 9 tablet, Rfl: 0 ibuprofen (ADVIL,MOTRIN) 600 MG tablet, Take 1 (one) tablet (600 mg total) by mouth every 6 (six) hours as needed for pain ., Disp: 30 tablet, Rfl: 0 losartan (COZAAR) 50 MG tablet, Take 1 (one) tablet (50 mg total) by mouth daily ., Disp: , Rfl: metoprolol succinate (TOPROL-XL) 50 MG 24 hr tablet, Take 1 (one) tablet (50 mg total) by mouth daily ., Disp: , Rfl: spironolactone (ALDACTONE) 25 MG tablet, Take 0.5 (one-half) tablet (12.5 mg total) by mouth daily ., Disp: , Rfl: ciprofloxacin HCl (CIPRO) 500 MG tablet, Take 1 (one) tablet (500 mg total) by mouth daily for 3 days . (Patient not taking: Reported on 12/28/2024 .), Disp: 3 tablet, Rfl: 0 AUTHENTICATED BY JANET CHOWDHURY, ON 12/28/2024 16:44:12 URINE AEROBIC CULTURE Observed: 12/26/19 8:27 PM Status: F Source: [facility] URINE CULTURE KLEBSIELLA OXYTOCA 10,000-49,000 CFU/mL Klebsiella oxytoca MORGANELLA MORGANII SSP MORGANII 10,000-49,000 CFU/mL Morganella morganii ssp morganii Organism: KLEBSIELLA OXYTOCA Antibiotic Interpretation ROSSANA Status Cefazolin Susc Islt R >=32 F Cefuroxime Oral Susc Islt S 4 F Ceftriaxone Susc Islt S <=0.25 F Cefepime Susc Islt S <=0.12 F Ampicillin+Sulbac Susc Islt R >=32 F Pip+Tazo Susc Islt S <=4 F Aztreonam Susc Islt S <=1 F B-Lactamase Extended Susc Islt S Negative F Gentamicin Susc Islt R >=16 F Tobramycin Susc Islt S 4 F Amikacin Susc Islt S <=1 F Ciprofloxacin Susc Islt S <=0.06 F AVOID fluoroquinolone treatment whenever possible. Risk of serious side effects may outweigh benefit. Levofloxacin Susc Islt S <=0.12 F TMP SMX Susc Islt R >=320 F Nitrofurantoin Susc Islt S 32 F Organism: MORGANELLA MORGANII SSP MORGANII Antibiotic Interpretation ROSSANA Status Pip+Tazo Susc Islt S <=4 F Meropenem Susc Islt S <=0.25 F Aztreonam Susc Islt S <=1 F Gentamicin Susc Islt S <=1 F Tobramycin Susc Islt S <=1 F Amikacin Susc Islt S 4 F Ciprofloxacin Susc Islt S <=0.06 F AVOID fluoroquinolone treatment whenever possible. Risk of serious side effects may outweigh benefit. Levofloxacin Susc Islt S <=0.12 F TMP SMX Susc Islt S <=20 F Nitrofurantoin Susc Islt R 128 F Performed By: #### [id number] ### # [facility] [address] [place] [address] Onur Clark M.D. [id number] URINALYSIS Collected: 5 8:27 PM Status: F Source: [facility] Comment: Microscopic e xamination is performed on all urinalysis samples and only positive findings are reported. The test for blood on the chemical analytic portion of urinalysis may also be positive due to hemoglobinuria and myoglobinuria and if red blood cells are present they are quantified by microscopic examination. TYPE CODE TESTS RESULT OUT OF RANGE REFERENCE UNITS LAB URCOLOR COLOR, URINE Yellow Colorle ss, Yellow LAB CLA CLARITY, URINE Clear Clear LAB SG SPECIFIC GRAVITY 1.022 1.005-1.025 LAB URPH PH, URINE 5.0 5.0-7.0 LAB URPRO PROTEIN, URINE Negative Negative mg/dL LAB URGLU GLUCOSE, URINE Negative Negative mg/dL LAB KET KETONES, URINE Negative Negative mg/dL LAB PATTIE BILIRUBIN, URINE Negative Negative LAB URO UROBILINOGEN, URINE <2.0 <2.0 mg/dL LAB URBLD BLOOD, URINE Negative Negative LAB NIT NITRITE, URINE Negative Negative LAB CALI LEUKOCYTE ESTERASE, URINE Negative Negative LAB URWBC WBC, URINE 1 0-5 /hpf LAB BACT BACTERIA, URINE None Seen None Seen /hpf LAB SQEP SQUAMOUS EPITHELIAL < 0-4 /hpf LAB HYAL HYALINE CASTS 3-5 Abnormal 0-2 /lpf LAB MUCS MUCUS, URINE Rare None Se en, Rare /lpf Performed By: #### [id number] ### # [facility] [address], [place] [address] Grant Ren M.D. ED PROV NOTE Observed: 12/25/2024 8:20 PM Status: COMPLETED Source: [facility] HPI/ROS This patient is a 84 y.o. Male wirh past medical history of colon cancer, coronary artery stent, kidney stones, NE, and pacemaker, who presents to the emergency department with chief complaint of pain in the left side flank which was actually pain to the lateral trunk just above the left iliac crest where I am able to palpate a spasming muscle. The patient does not recall any specific injury but then recalled carrying some things down the steps out of his house and had a near miss of one of the steps, Yesterday. He has been having pain since yesterday. He has been using ice until today he started using heat and that is when it became inflamed even more. He is denying any sensation of fevers or chills and arrives the temperature 97.7. He denies any dysuria, hematuria, or flank pain. He has not had any nausea, vomiting, diarrhea, constipation, black tarry stools, bright red blood in the stools, numbness, tingling, weakness to the extremities. Medical Decision Making I saw and evaluated the patient. I have reviewed the chief complaint, triage note, past medical/surgical, family, and social history. Diagnostic results have been reviewed by me. Radiographic Imaging (if any) During ED Visit XR Lumbar Spine 2-3 Views (Standard) Final Result IMPRESSION: Degenerative changes seen predominant in the right-sided facets L4-5 and L5-S1. WorkStationId: [id number] Urine culture is pending. Treatment and course Shared decision-making was utilized and I discussed the patient's diagnosis, treatment, disposition, and follow-up with the patient/family. The patient and I discussed his diagnostic testing and we discussed this likely being a musculoskeletal strain. His urinalysis did not show any signs of bacteria, nitrates, or leukocyte esterase and only 1 white blood cell per high-powered field. Urine culture is pending. The patient was treated with Toradol 15 mg IV push and Valium 5 mg p.o. Upon reevaluation, the patient was nearly pain-free and desired to be discharged to home. He was discharged with a prescription for Valium 5 mg tablets for muscle spasms with sedation warning. NARx checked score was 070 for narcotics with sedative score of 091. He was also given prescription for ibuprofen 600 mg tablets. We discussed use of Biofreeze which he stated he did have at home. He is instructed to follow-up with his primary care physician by calling in the morning to set up a follow-up appointment this week for reevaluation. He is instructed to return to the emergency department if any change or worsening of his symptoms or condition. Differential diagnosis includes but is not limited to: Muscle strain, acute exacerbation of chronic low back pain, radiculopathy. Kidney stone, kidney infection. Acute on chronic shoulder pain. Social Determinants of Health: Social History[1] Denies tobacco, alcohol, or illicit drugs. Has primary care physician to follow-up with. Denies any transportation barriers. 1. Muscle spasm 2. Muscle strain 3. Acute left-sided low back pain without sciatica 4. Strain of left shoulder, initial encounter MDM Data MDM Data: External Documents/Labs Reviewed, X-ray interpretation reviewed, Shared decision making utilized, and Social Determinants of Health Impacted Treatment/Disposition Physical Exam Initial Vital Signs BP (!) 147/85 Pulse 68 Temp 97.7 degrees F (36.5 degrees C) (Oral) Resp 18 Ht 5' 8" Wt 78.9 kg (174 lb) SpO2 96% BMI 26.46 kg/m Vital Signs During ED Visit (as charted by nursing) Patient Vitals for the past 24 hrs: BP Temp Temp src Pulse Resp SpO2 Height Weight 12/25/241956 -- -- -- -- 18 -- -- -- 12/25/24 191 -- -- -- -- -- 96 % -- -- 12/25/24 1904 -- -- -- -- -- -- 5' 8" 78.9 kg (174 lb) 12/25/24 1842 (!) 147/85 97.7 degrees F (36.5 degrees C) Oral 68 18 96 % -- -- Physical Exam Vitals and nursing note reviewed. Constitutional: General: He is awake. He is not in acute distress. Appearance: Normal appearance. He is well-developed. He is not ill-appearing, toxic-appearing or diaphoretic. HENT: Head: Normocephalic and atraumatic. Right Ear: External ear normal. Left Ear: External ear normal. Nose: Nose normal. No congestion. Eyes: General: Right eye: No discharge. Left eye: No discharge. Extraocular Movements: Extraocular movements intact. Conjunctiva/sclera: Conjunctivae normal. Pupils: Pupils are equal, round, and reactive to light. Neck: Thyroid: No thyromegaly. Vascular: No JVD. Trachea: No tracheal deviation. Cardiovascular: Rate and Rhythm: Normal rate and regular rhythm. Pulses: Normal pulses. Heart sounds: Normal heart sounds. No murmur heard. No friction rub. No gallop. Musculoskeletal: General: Tenderness and signs of injury present. Normal range of motion. Cervical back: Normal range of motion. No rigidity. Legs: Pulmonary: Effort: Pulmonary effort is normal. No respiratory distress. Breath sounds: Normal breath sounds. No stridor. No wheezing or rales. Abdominal: General: Bowel sounds are normal. There is no distension. Palpations: Abdomen is soft. Tenderness: There is no abdominal tenderness. There is no guarding. Skin: General: Skin is warm and dry. Capillary Refill: Capillary refill takes less than 2 seconds. Coloration: Skin is not pale. Findings: No erythema or rash. Neurological: General: No focal deficit present. Mental Status: He is alert and oriented to person, place, and time. Mental status is at baseline. Cranial Nerves: No cranial nerve deficit. Sensory: No sensory deficit. Motor: No weakness. Coordination: Coordination normal. Deep Tendon Reflexes: Reflexes are normal and symmetric. Psychiatric: Mood and Affect: Mood normal. Behavior: Behavior normal. Behavior is cooperative. Thought Content: Thought content normal. Judgment: Judgment normal. Past Medical History Nursing triage notes/past medical, social, and family hx reviewed by me and I agree except where documented above. Past Medical History: Diagnosis Date Cancer (HCC) COLON History of heart artery stent X1 Kidney stones Myocardial infarction (HCC) Pacemaker Allergies Allergies[2] Medications No current outpatient medications on file prior to encounter. (Computer voice recognition was used in this documentation, there is a possibility of [id number]-z-[id number] errors inherent to this technology that may be missed during proofreading.) [1] Social History Tobacco Use Smoking status: Never Smokeless tobacco: Never Substance Use Topics Alcohol use: Never Drug use: Never [2] Allergies Allergen Reactions Adhesive Tape-Silicones Other (See Comments) Latex Other (See Comments) Adhesive Other (See Comments) Nadir Kapadia PA-C 01/05/25 0412 AUTHENTICATED BY NADIR KAPADIA, ON 01/05/2025 04:12:15 XR LUMBAR SPINE 2-3 VIEWS (STANDARD) Observed: 12/25/2024 8:20 PM Status: F Source: [facility] Order Comment: Injury/Trauma or Illness?:Illness/Other flank pain - hx of kidney stones no known injury How long have you had these symptoms (acute/chronic)?:Acute Reason for exam?:flank pain - hx of kidney stones no known injury History of cancer?:- Surgeries, chemotherapy, or radiation?:- Type of Exam?:Initial Additional signs and symptoms?:flank pain - hx of kidney stones no known injury EXAMINATION: XRAY VIEWS OF THE LUMBAR SPINE 12/25/2024 8:34 pm COMPARISON: None. HISTORY: ORDERING SYSTEM PROVIDED HISTORY: Left-sided low back pain with spasming. TECHNOLOGIST PROVIDED HISTORY: 1 Acuity: Acute Reason for Exam: flank pain - hx of kidney stones no known injury Cancer History: - Surgery, Radiation History: - Type of Exam: Initial Additional signs and symptoms: flank pain - hx of kidney stones no known injury FINDINGS: There is a discrete right convex curvature for the thoracolumbar spine. The alignment is preserved in the lateral projection. Mild degenerative changes seen in the L4-5 intervertebral discs. There is spondylosis anteriorly in 3-4. Mild degenerative changes seen in the right-sided facet joint of L4-5 and L5-S1. Pedicles and the spinous process appear intact. Degenerative changes are seen in the facet joints L5-S1 and L4-5 the right-side. The sacral wings and SI joints appear unremarkable with some degree of subchondral sclerosis on the iliac side of the right-sided SI joint. Mild degenerative changes seen in the symphysis of the pubis. IMPRESSION: IMPRESSION: Degenerative changes seen predominant in the right-sided facets L4-5 and L5-S1. WorkStationId: [id number] Dictated by: EUGENIA NICHOLE on ThuDec 25, 2024 8:59:14 PM EDT Transcribed by: EUGENIA NICHOLE on [place] Dec 25, 2024 8:59:14 PM EDT Finalized by: EUGENIA NICHOLE on ThuDec 25, 2024 8:59:14 PM EDT CTA - CHEST WITH CONTRAST Observed: 12/2024 9:57 AM Status: F Source: [place] [address] Diagnostic Imaging Report : [id number] Signed Name: LISSA GERBER MRUN: [id number] : 1940 Loc: CT Age / Sex: 83 / M ADM Status: DEP CLI ADM Date: 09/05/24 Room/Bed: Ordering Physician: CHEN PEREA PA-C Procedure: CTA - CHEST WITH CONTRAST Order Number(s): [id number] Ordered Date: 09/05/24 Ordered Time: 1052 EXAMINATION: CTA OF THE CHEST 09/05/2024 11:15 am TECHNIQUE: CTA of the chest was performed after the administration of intravenous contrast. Multiplanar reformatted images are provided for review. MIP images are provided for review. Automated exposure control, iterative reconstruction, and/or weight based adjustment of the mA/kV was utilized to reduce the radiation dose to as low as reasonably achievable. COMPARISON: None. HISTORY: LEFT ARM SWELLING FINDINGS: Pulmonary Arteries: Pulmonary arteries are adequately opacified for evaluation. No evidence of intraluminal filling defect to suggest pulmonary embolism. Main pulmonary artery is normal in caliber. Mediastinum: N anterior left chest wall cardiac device. O evidence of mediastinal lymphadenopathy. The heart and pericardium demonstrate no acute abnormality. There is no acute abnormality of the thoracic aorta. Small hiatal hernia. Lungs/pleura: Linear subsegmental atelectasis right lower lobe. The lungs are without acute process. No focal consolidation or pulmonary edema. No evidence of pleural effusion or pneumothorax. Upper Abdomen: Limited images of the upper abdomen are unremarkable. Soft Tissues/Bones: No acute bone or soft tissue abnormality. IMPRESSION: 1. No evidence of pulmonary embolism or acute pulmonary abnormality. 2. Small hiatal hernia. Dictated By: Chloé Ramírez MD Dictated Date/Time: 09/06/24 0957 Signed By: CHLOÉ RAMÍREZ MD, MD Signed Date/Time: 09/06/24 1003 Transcribed Date/Time: 09/06/24 0959 US DUPLEX VENOUS UP EXT LEFT Observed: 0 09/02/2024 1:42 PM Status: F Source: [place] [address] Diagnostic Imaging Report : [id number] Signed Name: LISSA GERBER MRUN: [id number] : 1940 Loc: US Age / Sex: 83 / M ADM Status: REG CLI ADM Date: 09/02/24 Room/Bed: Ordering Physician: CHEN PEREA PA-C Procedure: US DUPLEX VENOUS UP EXT LEFT Order Number(s): [id number] Ordered Date: 09/02/24 Ordered Time: 1246 EXAMINATION: DUPLEX ULTRASOUND OF THE LEFT UPPER EXTREMITY FOR DVT, 09/02/2024 1:04 pm TECHNIQUE: Duplex ultrasound using B-mode/santana scaled imaging and Doppler spectral analysis and color flow was obtained of the deep venous structures of the upper left extremity. COMPARISON: None. HISTORY: LT ARM SWELLING FINDINGS: There is normal flow and compressibility of the visualized venous structures. There is no evidence of echogenic thrombus. The veins demonstrate good compressibility with normal color flow study and spectral analysis. IMPRESSION: No evidence of DVT. Dictated By: Sandi Schwartz MD Dictated Date/Time: 09/02/24 134 Signed By: Sandi Schwartz MD, MD Signed Date/Time: 09/02/24 1346 Transcribed Date/Time: 09/02/24 1342 ALLERGIES DATE TYPE / CODE NAME / CODE REACTION SEVERITY SOURCE 03/17/2023 DRUG/481039108( SNOMED CT) ADHESIVE TAPE-SILICONES Other [facility] 03/17/2023 DRUG INGREDI/7148233 03(SNOMED CT) LATEX Other [facility] 2015 Drug Class/084299577 (SNOMED CT) ADHESIVE [facility] 2015 Drug Allergy/8391675 02(SNOMED CT) adhesive/O231128042 (RXNORM) BLISTERS [facility] Drug Class/752150889 (SNOMED CT) NO KNOWN ALLERGIES [facility] ENCOUNTERS ADMIT/DISCHARGE ACCOUNT NUMBER ADMITTING ENCOUNTER CLASS LOCATION SOURCE 02/16/2025/ 025 [id number] Ambulatory [id number] [facility] 01/19/2025/ 025 [id number] Ambulatory Buildin 1 [facility] 01/17/2025/ 025 [id number] JANET CHOWDHURY Ambulatory Building:[facility]39R oom: ENDOBed: ENDO [facility] 12/28/2024/ 025 [id number] Ambulatory Building:[facility] 12/25/2024/ 025 [id number] Emergency Building:[facility]C11R oom: 17Bed: 17 [facility] 09/06/2024 [id number] [facility] 09/05/2024/ 025 [id number] Ambulatory [facility] MEDBuilding:CT [facility] 09/02/2024/ 025 [id number] Ambulatory [facility] MEDBuilding:[facility] 09/02/2024 [id number] Ambulatory Building:[facility] 08/31/2024 [id number] Ambulatory Building:[facility] 08/24/2024 [id number] Ambulatory Building:[facility] 08/23/2024 [id number] Ambulatory Building:[facility] 07/22/2024/ 025 [id number] Ambulatory Buildin 1 [facility] 07/21/2024 [id number] Ambulatory Buildin 0 [address] [facility] 07/21/2024 [id number] Ambulatory Buildin 0 [address] [facility] 06/20/2024/ 025 [id number] Ambulatory Buildin 1 [facility] 06/14/2024/ 025 [id number] Ambulatory Building:[facility] 06/03/2024 [id number] Ambulatory Building:[facility] 06/02/2024 [id number] Ambulatory Building:[facility] 06/02/2024 [id number] Amb[facility] 05/11/2024 [id number] Ambulatory Building:[facility] 05/10/2024 [id number] Amb[facility] 05/09/2024 [id number] Ambulatory Building:[facility] 05/06/2024 [id number] Ambulatory Building:[facility] 05/04/2024 [id number] Ambulatory Building:[facility] 05/02/2024 [id number] Ambulatory [facility] 04/20/2024 [id number] Ambulatory Building:[facility] 04/18/2024 [id number] Ambulatory Building:[facility] 04/13/2024 [id number] Ambulatory Building:[facility] 04/08/2024 [id number] Ambulatory Building:[facility] 04/06/2024 [id number] Ambulatory Building:[facility] 03/22/2024 [id number] Ambulatory Building:[facility] 03/04/2024/ 024 [id number] Ambulatory Buildin 1 [facility] PAYERS ENCOUNTER GUARANTOR PAYER SUBSCRIBER SOURCE 02/16/2025 Primary Insurance:MEDICARE A AND BPolicy Number: [id number] Date:7505-53-24Wsst Name:Javier CALDWELLB: [id number] [address], [place] [address] [facility] 02/16/2025 Secondary Insurance:AETNA MEDICARE SUPPLEMENTPolicy Number: [id number] Date:7125-14-85Cbtf Name:Francoise CALDWELLB: [id number] [address], [place] [address] [facility] 01/19/2025 LISSA CALDWELLB: [id number] [id number], [place] [address]Zhu: ~( 550 (HP) Primary Insurance:MEDICAREPolicy Number: [id number] Date: LISSA CALDWELLB: [id number] [id number], [place] [address]Rft: (HP) [facility] 01/19/2025 Secondary Insurance:AETNAPolicy Number: [id number] Date:[address] [address], [place] [address]JZ: LISSA CALDWELLB: [id number] [id number], [place] [address]Whp: (HP) [facility] 01/17/2025 LISSA CALDWELLB: [id number] [address], [place] [address]Vok: ~( 400 (HP) Primary Insurance:MEDICAREPolicy Number: [id number] Date:7374-54-87BDT J15 PART A CLAIMSP[address]ZPZTZSV[place], [place] [address]AU: LISSA CALDWELLB: [id number] [address], [place] [address]Mgg: (HP) [facility] 01/17/2025 Secondary Insurance:MEDICAREPolicy Number: [id number] Date:2323-60-31GEA J15 PART A [address]SP[address], [place] [address]WZ: LISSA CALDWELLB: [id number] [address], [place] [address]Oys: (HP) [facility] 12/28/2024 LISSA CALDWELLB: [address], [place] [address]Ftg: ~( 570 (HP) Primary Insurance:MEDICAREPolicy Number: [id number] Date:6316-18-55PAJ J15 PART A [address]SP[address]JX[place], [place] [address]AT: LISSA CALDWELLB: [id number] [address], [place] [address]Vuj: (HP) [facility] 12/25/2024 LISSA CALDWELLB: [id number] [address], [place] [address]Hdm: ~( 610 (HP) Primary Insurance:AETNAPolicy Number: [id number] Date:[address] [address]DW: LISSA CARUSOKATHIEB: [id number] [address], [place] [address]Ufm: (HP) [facility] 12/25/2024 Secondary Insurance:MEDICAREPolicy Number: [id number] Date:2923-13-49LEU J15 PART A [address] [address]EVZNKFFNP, [place] [address]YO: LISSA Morris MIGUELINAB: [id number] [address], [place] [address]Eyw: (HP) [facility] 09/06/2024 Lissa CarusoKathieB: [id number], [place] [address]Fio: (HP) (WP) Primary Insurance:Medicare Part BPolicy Number: [id number] Date:Plan Name:MARGUERITE Lissa MiguelinaB: [id number] [address], [place] [address]Tzf: (HP) (WP) [facility] 09/06/2024 Secondary Insurance:Aetna [facility] Non PGSEOPolicy Number: [id number] Date:Plan Name:[address], [place] [id number]: Lissa SharpeAnnamarieB: [id number] [address], [place] [address]Kkz: (HP) (WP) [facility] 09/05/2024 LISSA Morris [id number] [address], [place] [address]Lzi: (HP) Primary Insurance:MEDICAREPolicy Number: [id number] Date: LISSA WERNER [facility] 09/05/2024 Secondary Insurance:AETNA MCR SUPPLEMENTALPolicy Number: [id number] Date:[address] [place] [address]CR: LISSA WERNER [facility] 09/02/2024 LISSA [id number] [address], [place] [address]Ncw: (HP) Primary Insurance:MEDICAREPolicy Number: [id number] Date: LISSA WERNER [facility] 09/02/2024 Secondary Insurance:AETNA MCR SUPPLEMENTALPolicy Number: [id number] Date:[address] [place] [address]FA: LISSA WERNER [facility] 09/02/2024 Lissa SharpeAnnamarieB: [id number] [address], [place] [address]Fvk: (HP) (WP) Primary Insurance:Medicare Part BPolicy Number: [id number] Date:Plan Name:MARGUERITE Johnsoner Zo: [id number] [address], [place] [address]Xdd: (HP) (WP) [facility] 09/02/2024 Secondary Insurance:Aetna Senior Supplemental Non PGSEOPolicy Number: [id number] Date:Plan Name:[address] [place] [phone]: Lissa GerberB: [id number] [address], [place] [address]Ewv: (HP) (WP) [facility] 08/31/2024 Lissa CaldwellB: [id number] [address] [place] [address]Zov: (HP) (WP) Primary Insurance:Medicare Part BPolicy Number: [id number] Date:Plan Name:MARGUERITE CaldwellB: [id number] [address] [place] [address]Hpd: (HP) (WP) [facility] 08/31/2024 Secondary Insurance:Aetna Senior Supplemental Non PGSEOPolicy Number: [id number] Date:Plan Name:[facility] [address] [place] [id number]: Lissa CaldwellB: [id number] [address] [place] [address]Tyg: (HP) (WP) [facility] 08/24/2024 Lissa CaldwellB: [id number] [address] [place] [address]Avz: (HP) (WP) Primary Insurance:Medicare Part BPolicy Number: [id number] Date:Plan Name:MARGUERITE CaldwellB: [id number] [address] [place], [place] [address]Zct: (HP) (WP) [facility] 08/24/2024 Secondary Insurance:Aetna Senior Supplemental Non PGSEOPolicy Number: [id number] Date:Plan Name:Yordy Cervantes [address] [place] [phone]: Lissa CaldwellB: [id number] [address] [place] [address]Nic: (HP) () [facility] 08/23/2024 Lissa Pathak: [id number] [address], [place] [address]Tds: (HP) Primary Insurance:Medicare Part BPolicy Number: [id number] Date:Plan Name:MARGUERITE GerberB: [id number] [address], [place] [address]Sik: (HP) [facility] 07/22/2024 LISSA CALDWELLB: [id number] [phone] [place], [place] [address]Cee: ~( [phone] (HP) Primary Insurance:MEDICAREPolicy Number: [id number] Date: LISSA PATHAK: [id number] [id number], [place] [address]Zlf: (HP) [facility] 07/22/2024 Secondary Insurance:AETNAPolicy Number: [id number] Date: [address] [place] [id number]: LISSA CALDWELLB: [id number] [id number], [place] [address]Zwo: (HP) [facility] 07/21/2024 LISSA CALDWELLB: [id number] [address]ICE [id number], [place] [address]Hgt: ~( [phone] (HP) Primary Insurance:MEDICAREPolicy Number: [id number] Date: LISSA CALDWELLB: [id number] [id number], [place] [address]Gua: (HP) [facility] 07/21/2024 Secondary Insurance:CONTINENTAL LIFEPolicy Number: [id number] Date: LISSA CALDWELLB: [id number] [id number] [address], [place] [address]Agw: (HP) [facility] 07/21/2024 LISSA SHARPEANNAMARIEB: 2137-53-67EAMO [address]ICE [id number], [place] [address]Pyq: ~( (HP) Primary Insurance:MEDICAREPolicy Number: [id number] Date: LISSA SHARPEANNAMARIEB: 6993-44-11WROBKAM [address]ICE [id number], [place] [address]Cfe: (HP) [facility] 07/21/2024 Secondary Insurance:CONTINENTAL LIFEPolicy Number: [id number] Date: LISSA SHARPEANNAMARIEB: 9350-56-93KNDTGRS [address]ICE [address], [place] [address]Nek: (HP) [facility] 06/20/2024 LISSA SHARPEANNAMARIEB: 8541-43-44WKOO [address]ICE [id number], [place] [address]Kuf: ~( 489 (HP) Primary Insurance:MEDICAREPolicy Number: [id number] Date: LISSA CALDWELLB: 0774-93-67WMBCXPD [address]ICE [id number], [place] [address]Htv: (HP) [facility] 06/20/2024 Secondary Insurance:AETNAPolicy Number: [id number] Date: [address], [place] [address]LX: LISSA CARUSOKATHIEB: 2554-46-32ZCCQVQB [address]ICE [address], [place] [address]Gwd: (HP) [facility] 06/14/2024 LISSA BECERRADAVIDB: 4874-80-77JIJH [address]ICE [address], [place] [address]Nls: ~( 420 (HP) Primary Insurance:MEDICAREPolicy Number: [id number] Date: LISSA ZO: 2123-03-23YAWZUWZ [address]ICE [address], [place] [address]Ket: (HP) [facility] 06/14/2024 Secondary Insurance:AETNAPolicy Number: [id number] Date: [address] [place] [address]UI: LISSA MIGUELINAB: 8417-55-78BDPQBWN [address]ICE [address], [place] [address]Nyv: (HP) [facility] 06/03/2024 Lissa Zo: 1250-73-87Ac [address] [place], [place] [address]Mxs: (HP) Primary Insurance:Medicare Part BPolicy Number: [id number] Date:Plan Name:MARGUERITE Pathak: 9935-93-17ODSRg [address] [place], [place] [address]Bwo: (HP) [facility] 06/02/2024 Lissa CaldwellB: 0384-00-88Ko [address], [place] [address]Bzn: (HP) Primary Insurance:Medicare Part BPolicy Number: [id number] Date:Plan Name:MARGUERITE Pathak: 9565-08-96EWAXi [address], [place] [address]Gcd: (HP) [facility] 06/02/2024 Lissa BecerraDavidB: 0798-26-29Pn [address], [place] [address]Ena: () Primary Insurance:Medicare Part BPolicy Number: [id number] Date:Plan Name:MARGUERITE Allen MiguelinaB: 1316-79-33RKUAt [address], [place] [address]Sfz: () [facility] 05/11/2024 Primary Insurance:MEDICAREPolicy Number: [id number] Date:4337-20-31US [address] [place] [address]ID: LISSA BECERRADAVIDB: 8426-72-51[place] [address]Jqt: () [facility] 05/11/2024 Secondary Insurance:MEDICAREPolicy Number: [id number] Date:7634-47-68SB [address] [place] [address]GI: LISSA SHARPEANNAMARIEB: 8214-81-84WBHC[place] [address]Fhc: () [facility] 05/11/2024 Tertiary Insuran ce:AETNA MEDICARE SUPPLEMENTPolicy Number: [id number] Date:9690-36-10ED [address]IRZSFKPPN, [place] [address]OQ: LISSA Morris JOHNSUSANANNAMARIEB: 5892-67-90JEBPX [address], [place] [address]Mtr: () [facility] 05/10/2024 Lissa CaldwellB: 3589-54-93Qk [address], [place] [address]Lvt: () Primary Insurance:Medicare Part BPolicy Number: [id number] Date:Plan Name:MARGUERITE SharpeAnnamarieB: 4589-66-77JLFMg [address] [place] [address]Zwa: () [facility] 05/09/2024 Primary Insurance:MEDICAREPolicy Number: [id number] Date:4525-36-65UI [address] [place] [address]IE: LISSA Morris MIGUELINAB: 2034-07-60[place] [address]Uns: () [facility] 05/09/2024 Secondary Insurance:MEDICAREPolicy Number: [id number] Date:3628-57-42WH [address] [place] [address]DW: LISSA CARUSOKATHIEB: 6656-10-82[place] [address]Pah: () [facility] 05/09/2024 Tertiary Insuran ce:AETNA MEDICARE SUPPLEMENTPolicy Number: [id number] Date:6034-71-49RD [address]CPXEUAHV, [place] [address]DB: LISSA SHARPEANNAMARIEB: 2977-36-[place] [address]Ndx: () [facility] 05/06/2024 Primary Insurance:MEDICAREPolicy Number: [id number] Date:3167-06-19EB [address] [place] [address]TG: LISSA Morris MIGUELINAB: 9411-72-75HGTKP [place] [address]Qcp: () [facility] 05/06/2024 Secondary Insurance:MEDICAREPolicy Number: [id number] Date:7374-01-13GA [address] [place] [address]SO: LISSA GERBERDOB: 1958-66-[place] [address]Hut: () [facility] 05/06/2024 Tertiary Insuran ce:IRASEMA MEDICARE SUPPLEMENTPolicy Number: [id number] Date:1288-33-94BR [address]QVYAKEXCJ, [place] [address]KV: LISSA CALDWELLB: 8223-27-72[place] [address]Lap: () [facility] 05/04/2024 Primary Insurance:MEDICAREPolicy Number: [id number] Date:0191-56-44FQ [address] [place] [address]RM: LISSA GERBERDOB: 8298-11-08IVD[place] [address]Ryf: () [facility] 05/04/2024 Secondary Insurance:MEDICAREPolicy Number: [id number] Date:4220-37-37BG [address]VOYWO[address] [place] [address]EB: LISSA GERBERDOB: 0482-53-43QZSEX [place] [address]Npn: () [facility] 05/04/2024 Tertiary Insuran ce:AEJOEL MEDICARE SUPPLEMENTPolicy Number: [id number] Date:6965-97-74EM [address] [place] [address]AV: LISSA CALDWELLB: 3212-86-25SNVWO [address], [place] [address]Hdo: () [facility] 05/02/2024 Lissa SharpeAnnamarieB: 1748-31-08Cj [address] [place], [place] [address]Gjo: () Primary Insurance:Medicare Part BPolicy Number: [id number] Date:Plan Name:MARGUERITE SharpeAnnamarieB: 5245-53-67UWQTa [address] [place], [place] [address]Wof: () [facility] 05/02/2024 Secondary Insurance:[facility] Supplemental Non PGSEOPolicy Number: [id number] Date:Plan Name:[facility] [address] [place] [id number]: Lissa SharpeAnnamarieB: 4615-65-85FBHIy [address] [place], [place] [address]Hvs: () [facility] 04/20/2024 Primary Insurance:MEDICAREPolicy Number: [id number] Date:8923-90-21SS [address], [place] [address]ZN: LISSA CALDWELLB: 5341-21-34[place] [address]Rna: () [facility] 04/20/2024 Secondary Insurance:MEDICAREPolicy Number: [id number] Date:4367-04-84KI [address], [place] [address]DI: LISSA CARUSOHOTDOB: 5430-59-61HQXMQ [address], [place] [address]Jmm: () [facility] 04/20/2024 Tertiary Insuran ce:LUIS CARLOSTLAUREN MEDICARE SUPPLEMENTPolicy Number: [id number] Date:3423-78-33EV [address] [place] [address]UV: LISSA CARUSOHOTDOB: 0014-41-50RFMNJ [address], [place] [address]Tsj: () [facility] 04/18/2024 Primary Insurance:MEDICAREPolicy Number: [id number] Date:5194-36-35TM [address] [place] [address]NU: LISSA CARUSOHOTDOB: 9092-66-34TLZ[place] [address]Gpl: () [facility] 04/18/2024 Secondary Insurance:MEDICAREPolicy Number: [id number] Date:6910-95-20TE [address] [place] [address]CV: LISSA SHARPETDOB: 0994-66-96H[place] [address]Tis: () [facility] 04/18/2024 Tertiary Insuran ce:CALLILAUREN MEDICARE SUPPLEMENTPolicy Number: [id number] Date:1876-22-23NQ [address] [place] [address]UD: LISSA CARUSOHOTDOB: 6606-29-04IDFBG [address], [place] [address]Nrk: () [facility] 04/13/2024 Primary Insurance:MEDICAREPolicy Number: [id number] Date:8173-31-33LZ [address]QJ[place]DX, [place] [address]ON: LISSA GERBERDOB: 2838-77-49AYNGS [address], [place] [address]Ydb: () [facility] 04/13/2024 Secondary Insurance:MEDICAREPolicy Number: [id number] Date:6486-29-82GI [address], [place] [address]PR: LISSA CALDWELLB: 5738-94-78GYAKA [address] [place] [address] [place] [address]Wlm: () [facility] 04/13/2024 Tertiary Insuran ce:AETNA MEDICARE SUPPLEMENTPolicy Number: [id number] Date:1014-34-02FP [address] [place] [address]VZ: LISSA CALDWELLB: 9617-60-98XXNFB [place] [address]Zkx: () [facility] 04/08/2024 Primary Insurance:MEDICAREPolicy Number: [id number] Date:8028-34-70NV [address]CGGLFKT, [place] [address]WK: LISSA CALDWELLB: 7564-93-58[place] [address]Gsy: () [facility] 04/08/2024 Secondary Insurance:MEDICAREPolicy Number: [id number] Date:1247-76-10OY [address], [place] [address]RX: LISSA CARUSOHOTDOB: 3156-48-53[place] [address]Eqt: () [facility] 04/08/2024 Tertiary Insuran ce:AETNA MEDICARE SUPPLEMENTPolicy Number: [id number] Date:5052-79-07QA [address] [place] [address]GP: LISSA CARUSOHOTDOB: 6105-39-[place] [address]Qzj: () [facility] 04/06/2024 Primary Insurance:MEDICAREPolicy Number: [id number] Date:2713-67-02ZK [address]FFPTD[address] [place] [address]KD: LISSA CARUSOHOTDOB: 9100-13-05[place] [address]Esy: () [facility] 04/06/2024 Secondary Insurance:MEDICAREPolicy Number: [id number] Date:4892-83-24KS [address]MXFYPBFR[address] [place] [address]RU: LISSA CARUSOHOTDOB: 2122-70-[place] [address]Eeh: () [facility] 04/06/2024 Tertiary Insuran ce:LUIS CARLOSTLAUREN MEDICARE SUPPLEMENTPolicy Number: [id number] Date:6796-99-51TY [address] [place] [address]UD: LISSA SHARPETDOB: 7755-21-53[place] [address]Tbt: (HP[facility] Lissa GerberB: 0292-07-07Lq [address] [place] [address]Nxo: (HP) Primary Insurance:Medicare Part BPolicy Number: [id number] Date:Plan Name:MARGUERITE Johnsoncorina CarusoKathieB: 2609-24-04JJQJy [address] [place] [address]Tdo: (HP) [facility] 03/22/2024 [facility] PGSEOPolicy Number: [id number] Date:Plan [facility] [address]Ziagjjfxp, [place] [address]WY: Lissa CarusoAdebayo: 0916-37-06BXYJu [address] [place] [address]Yjo: (HP) [facility] 03/04/2024 LISSA SHARPEANNAMARIEB: 3777-96-29ROUD [address]ICE [address] [place], [place] [address]Lqa: ~( 256 (HP) Primary Insurance:MEDICAREPolicy Number: [id number] Date: LISSA BECERRASYDNEY: 3678-09-43HRVCGWY [address]ICE [address] [place], [place] [address]Lwb: (HP) [facility] 03/04/2024 Secondary [facility] Number: [id number] Date: LISSA SHARPECIARAN: 6561-78-69OZKYKPF [address]ICE [address] [place], [place] [address]Mne: () [facility]
[2025-02-27 13:15] LABS: PSA,Total- Diagnostic 8.36 ng/mL (0.00-4.00)
== END | disposition home or self-care (01) ==
LOC: LAB 11:06
PROVIDERS: Referring Provider Urology; Visit Provider Urology
DX: R97.20 Elevated prostate specific antigen [PSA] (principal)
CPT/HCPCS: 36415; 84153